=== PATIENT | male | born 1940 | race Caucasian/White ===

== ENCOUNTER 2020-07-06 09:23 | Day surgery (SDC) | payer MEDICARE ==
[~2020-07-06] VITALS: Ht 172.7 cm; Wt 97.9 kg
--- NOTE | 2020-07-06 09:49 | NUR ---
07/06/20 0949 Lucy Hess CHARTED BY [facility]
[2020-07-06] MEDS ORDERED: ELIQUIS5 M3 PO (09:53)
[2020-07-06] MEDS ORDERED: METO50ER PO (09:54)
[2020-07-06] MEDS ORDERED: TORSE20 PO (09:54)
[2020-07-06] MEDS ORDERED: AMLODIPINE BESY10 MG PO (09:54)
[2020-07-06] MEDS ORDERED: ROSUVASTATIN CA10 MG PO (09:54)
[2020-07-06] MEDS ORDERED: TAMSULOSIN HCL0.4 M1 PO (09:55)
--- NOTE | 2020-07-06 11:46 | NUR ---
07/06/20 1146 Gisel Jiménez LIDOCAINE 1% AND LIDOCAINE 4% NOT USED FOR THIS PROCEDURE. TETRACAINE USED IN ITS PLACE PER PHYSICIAN REQUEST
== END 2020-07-06 12:21 | disposition home or self-care (01) ==
LOC: ORSCSDS 09:23
PROVIDERS: Ophthalmology
PROC: 08RJ3JZ Replacement of Right Lens with Synthetic Substitute, Percutaneous Approach (ICD-10-PCS; principal; 2020-07-06 10:30)
DX: H25.11 Age-related nuclear cataract, right eye (principal); H21.81 Floppy iris syndrome; I48.91 Unspecified atrial fibrillation; Z79.01 Long term (current) use of anticoagulants; G47.33 Obstructive sleep apnea (adult) (pediatric); Z79.899 Other long term (current) drug therapy
CPT/HCPCS: 82947; A9270; J2001; J2250; J3010; J3301; J7040; V2632

== ENCOUNTER 2020-12-21 01:18 | Inpatient (IN) | payer MEDICARE ==
[~2020-12-21] VITALS: Ht 170.2 cm; Wt 80.2 kg
[~2020-12-21 01:18] MED LIST: AMLODIPINE BESY10 MG PO; ELIQUIS5 M3 PO; METO25ER PO; ROSUVASTATIN CA10 MG PO; TAMSULOSIN HCL0.4 M1 PO; TORSE20 PO
[2020-12-21 01:58] LABS: Source, Urine Catheter
[2020-12-21 02:01] LABS: Bilirubin, Urine Neg (Neg); Blood, Urine 2+ (Neg); Glucose Qualitative, Urine Neg (Neg); Ketones, Urine Neg (Neg); Leukocyte Esterase, Urine Neg (Neg); Nitrite, Urine Neg (Neg); Protein, Urine 3+ (Neg); Urobilinogen, Urine NORM (Normal)
[2020-12-21 02:07] LABS: Appearance, Urine Clear (Clear); Color, Urine Yellow (P-Yellow)
[2020-12-21 02:08] LABS: Bacteria Not Seen /hpf; Red Blood Cells, Urine Rare /hpf (0-2); Squamous Epithelial Cells Not Seen /hpf (Few); White Blood Cells, Urine 0-2 /hpf (0-5)
[2020-12-21] MEDS ORDERED: SPIRONOLACTONE25 MG PO (02:12)
[2020-12-21] MEDS ORDERED: EUTHYROX25 MC1 PO (02:12)
[2020-12-21 03:06] LABS: BASOPHILS ABSOLUTE AUTO 0.03 K/mm3 (0.00-0.23); BASOPHILS PERCENT AUTO 0 % (0-2); EOSINOPHILS ABSOLUTE AUTO 0.01 K/mm3 (0.00-0.68); EOSINOPHILS PERCENT AUTO 0 % (0-6); Hematocrit 41.6 % (37.0-53.0); Hemoglobin 12.8 g/dL (13.5-17.5); IMMATURE GRAN ABSOLUTE AUTO 0.06 K/mm3 (0.00-0.10); IMMATURE GRAN PERCENT AUTO 1 % (0-1); LYMPHOCYTES ABSOLUTE AUTO 0.63 K/mm3 (0.84-5.20); LYMPHOCYTES PERCENT AUTO 5 % (21-46); MONOCYTES ABSOLUTE AUTO 1.27 K/mm3 (0.16-1.47); MONOCYTES PERCENT AUTO 10 % (4-13); Mean Corpuscular HGB 24.2 pg (26.0-34.0); Mean Corpuscular HGB Conc 30.8 g/dL (31.5-36.5); Mean Corpuscular Volume 79 fL (80-100); NEUTROPHILS ABSOLUTE AUTO 10.24 K/mm3 (1.96-9.15); NEUTROPHILS PERCENT AUTO 84 % (41-73); Platelet Count 247 K/mm3 (150-400); RDW Coefficient Variation 17.4 % (11.7-14.2); RDW Standard Deviation 50.1 fL (35.1-46.3); Red Blood Cell Count 5.28 M/mm3 (4.30-5.90); White Blood Cell Count 12.24 K/mm3 (4.00-11.30)
[2020-12-21 03:16] LABS: Alanine Aminotransfer (ALT/SGP 11 U/L (12-78); Albumin, Blood 2.5 g/dL (3.4-5.0); Albumin/Globulin Ratio 0.6 (0.8-1.8); Alk Phos 123 U/L (50-136); Anion Gap 4 mmol/L (6-16); Aspartate Aminotrans (AST/SGOT 15 U/L (12-37); Bilirubin, Total 1.2 mg/dL (0.1-1.0); Blood Urea Nitrogen 11 mg/dL (8-24); Bun/Creatinine Ratio 13.3 (12.0-20.0); CO2, Blood 32 mmol/L (21-32); Chloride, Blood 100 mmol/L (98-108); Creatinine, Blood 0.83 mg/dL (0.60-1.20); Glomerular Filtration Rate >60 (60-); Glucose, Blood 174 mg/dL (70-99); Potassium, Blood 3.3 mmol/L (3.5-5.5); Sodium, Blood 136 mmol/L (136-145); Total Protein, Blood 6.5 g/dL (6.4-8.2); Troponin I 0.062 ng/mL (0.000-0.040)
[2020-12-21 06:42] LABS: SARS-Cov-2 (COVID-19) PCR, MMC NEGATIVE (NEGATIVE)
--- NOTE | 2020-12-21 07:16 | NUR ---
ARRIVED FROM ED/SHIFT SUMMARY PATIENT ARRIVED FROM ED @ 0513; AWAKE AND ALERT. ON ROOM AIR W/ SPO2 99%. IV ACCESS OF 22G TO LT AC; POWER GLIDE PLACED TO PRADIP UPON ARRIVAL TO ICU. PATIENT IS A POOR HISTORIAN W/ PERIODS OF CONFUSION, BUT REMAINS ORIENTED X 4. PLAN IS FOR ECHO TO BE COMPLETED THIS MORNING W/ CARDIOLOGY TO FOLLOW CASE. REPORT GIVEN TO MAIA LORA
--- NOTE | 2020-12-21 07:45 | NUR ---
APOORVA AT BEDSIDE, HS NURSE REPORTS [facility] IN [place]. Danita SANCHEZ RN/CN TO BEDSIDE WEI COUNTED $385.00 VERIFIED W/PT. REPORTS FAMILY WILL COME AT VISITATION TIME AND TAKE HOME WITH THEM. [place] PLACED IN ZIPLOC BAG AND PLACED IN ROBE POCKET ON SHELF IN ROOM.
--- NOTE | 2020-12-21 08:00 | NUR ---
POWER GLIDE MIDLINE IV NOTED TO RIGHT UPPER ARM INFUSING WITH NO DIFFICULTY, DRESSING CLEAN DRY INTACT. NO REDNESS/ SWELLING NOTED.
--- NOTE | 2020-12-21 09:37 | NUR ---
DR LYLES AT BEDSIDE.
--- NOTE | 2020-12-21 10:45 | NUR ---
DR VAIL AT BEDSIDE, DISCUSSED BP. NO ORDERS AT THIS TIME.
[2020-12-21 12:22] LABS: Thyroid Stimulating Hormone 2.38 uIU/mL (0.360-4.800)
[2020-12-21 12:23] LABS: CHOL/HDL RATIO 3.2; Cholesterol 142 mg/dL (50-200); HDL Cholesterol 44 mg/dL (>39); LDL/HDL RATIO 1.9; Low Density Lipoprotein Chol 84 mg/dL (0-110); Triglycerides 71 mg/dL (30-160); Very Low Density Lipoprot Chol 14 mg/dL (6-32)
--- NOTE | 2020-12-21 12:23 | NUR ---
Echocardiogram completed
--- NOTE | 2020-12-21 15:22 | NUR ---
FAMILY AT BEDSIDE, MEDICATION LIST OF CURRENT MEDS PROVIDED. OLD AND NEW MEDICATION BOTTLES PROVIDED BY FAMILY. FAMILY AT BEDSIDE. OCCUPATIONAL HEALTH AT BEDSIDE.
--- NOTE | 2020-12-21 18:20 | NUR ---
PEERLA @ 3 AWAKE ALERT ORIENTED X 3 HAS DIFFICULTY WITH DATE/ TIME. REMAINS IN AFIB RATE VARIES FROM 80-110'S. AMIODARONE INFUSING ORDERED. PLAN FOR HEART CATH IN AM WITH DR LYLES. RESPIRATIONS EVEN UNLABORED ON ROOM AIR DOES BECOME SOB WHEN LYING FLAT, EXERTING SELF.BS X 4 QUADRANTS. INCONTINENT OF BLADDER, WEARS BRIEF, REQUEST FOR CHANGE NEEDED.
--- NOTE | 2020-12-21 19:00 | NUR ---
PATIENT REPORT RECEIVED FROM MONA LORA RN PATIENT APPEAR ON CALM AAOX3, PERSON, SITUATION, PLACE A FIB NOTED IN THE MONITOR (AMIO DRIP 0.5) NC 2 L WILL TO CONTINUE TO MONITOR
[2020-12-22 03:28] LABS: Hematocrit 36.8 % (37.0-53.0); Hemoglobin 11.3 g/dL (13.5-17.5); Mean Corpuscular HGB 24.6 pg (26.0-34.0); Mean Corpuscular HGB Conc 30.7 g/dL (31.5-36.5); Mean Corpuscular Volume 80 fL (80-100); Mean Platelet Volume 9.2 fL (9.1-12.4); Platelet Count 243 K/mm3 (150-400); RDW Coefficient Variation 17.4 % (11.7-14.2); Red Blood Cell Count 4.59 M/mm3 (4.30-5.90); White Blood Cell Count 11.12 K/mm3 (4.00-11.30)
[2020-12-22 03:49] LABS: Alanine Aminotransfer (ALT/SGP 8 U/L (12-78); Albumin, Blood 2.1 g/dL (3.4-5.0); Albumin/Globulin Ratio 0.6 (0.8-1.8); Alk Phos 110 U/L (50-136); Anion Gap 5 mmol/L (6-16); Aspartate Aminotrans (AST/SGOT 14 U/L (12-37); Blood Urea Nitrogen 13 mg/dL (8-24); Bun/Creatinine Ratio 14.6 (12.0-20.0); CO2, Blood 30 mmol/L (21-32); Calcium, Blood 8.5 mg/dL (8.5-10.1); Chloride, Blood 100 mmol/L (98-108); Creatinine, Blood 0.89 mg/dL (0.60-1.20); Globulin, Blood 3.8 g/dL (2.2-4.0); Glomerular Filtration Rate >60 (60-); Glucose, Blood 134 mg/dL (70-99); Potassium, Blood 3.3 mmol/L (3.5-5.5); Sodium, Blood 135 mmol/L (136-145); Total Protein, Blood 5.9 g/dL (6.4-8.2); Troponin I 0.027 ng/mL (0.000-0.040)
--- NOTE | 2020-12-22 07:48 | NUR ---
transported via bed to cardiac skilled laborer, accompanied by rn X2. respirations even unlabored on room air.
--- NOTE | 2020-12-22 10:00 | NUR ---
transported via bed to room from mobile lab technician accompanied mobile lab technician rn's x 2. right groin site secured with perclose device, small area with blood noted. distal pulse present, diminshed unchanged from pevious assessment. respirations even unlabored audible wheezing noted denies sob, o2 sat 100% on room air. 10:10 Son Erasmo called update to status will come to hosp during visiting hours.
--- NOTE | 2020-12-22 10:15 | NUR ---
RIGHT GROIN SITE REMAINS SOFT NO MASSES NOTED SCANT BLEEDING NOTED UNDER DRESSING NO BRUIT NOTED. RIGHT PEDAL PULSE DIMINISHED UNCHANGED FROM PREVIUS ASSESSMENT.
--- NOTE | 2020-12-22 10:30 | NUR ---
RIGHT GROIN SITE REMAINS SOFT NO MASSES NOTED NO BRUIT NOTED DRAINAGE SAME PREVIOUS ASSESSMENT. R PEDAL PULSE REMAISN DIMINISHED NO CHANGES
--- NOTE | 2020-12-22 10:45 | NUR ---
RIGHT GROINSITE REMAINS UNCHANGED FROM PREVIOUS ASSESSMENT. AUDIBLE WHEEZING NOTED. O2 SAT 99 % ON ROOM AIR DENIES SOB.
--- NOTE | 2020-12-22 11:00 | NUR ---
DR LYLES TO BEDSIDE, PALPATED R GROIN, BLOOD SEEPAGE NOTED FROM DRESSING dR LYLES APPLIED MANUAL PRESSURE REQUEST TO PLACE SAND BAG. 5 LB AND 2 LB SAND BAGS APPLIED. NO ADDITIONAL DRAINAGE NOTED. DISCUSSED RESPIRATORY STATUS, VERBAL ORDERS RECEIVED. DR MARTINO PLACE ORDERS ON CHART.
--- NOTE | 2020-12-22 11:15 | NUR ---
R GROIN SITE REMIANS W SAND BAGS IN PLACE NO NEW DRAINAGE NOTED. NO MASSES NO BRUIT, SOFT TO PALPATION. TACHYPNEA NOTED, 02 SAT 99%, RN REMAINS AT BEDSIDE.
--- NOTE | 2020-12-22 12:00 | NUR ---
SAND BAGS REMAIN INPLACE TO R GROIN, NO ADDITIONAL BLEEDING NOTED. TACHYPNEA NOTED AUDIBLE WHEEZING NOTED, LASIX ADMINISTERED ORDERED. RN REMAINS AT BEDSIDE
--- NOTE | 2020-12-22 13:00 | NUR ---
SMALL CONDOM CATHETER APPLIED, BRIEF REMAINS INTACT. RIGHT GROI9N SITE REMAINS UNCHANGED, SAND BAGS REMAININ PLACE. HOB UP apprx 30 degrees, APPEARS TIRED. RESPIRATORY PATTERN BETTER WITH NO INCREASED WORK OF BREATHING. STATES "CAN BREATH BETTER".
--- NOTE | 2020-12-22 14:39 | NUR ---
RESTING IN BED EYES CLOSED, AROUSES TO VERBAL STIMULI. RIGHT GROIN SITE REMAINS UNCHANGED, BLOOD UNDER DRESSING REMAINS UNCHANGED SOFT TO PALPATION, NO MASSESS/ BRUIT NOTED. SAND BAG REMAINS IN PLACE. RESPIRATIONS EVEN, NO USE OF ACCESSORY MUSCLES NOTED. CONDOM CATHETER REMAISN INTACT DRAINING DILUTE YELLOW URINE. HOB ELEVATED APPRX 45 DEGREES.
--- NOTE | 2020-12-22 15:03 | NUR ---
REPORT OFF TO RAYMON CARVALHO. PENDING TRANSPORT.
--- NOTE | 2020-12-22 15:52 | NUR ---
FAMILY AT BEDSIDE UPDATED ON POC/ STATUS, LOBO ( SON) REPORTS THEY HAVE SPOKEN TO DR LYLES AND HAVE NO FURTHER QUESTIONS AT THIS TIME. NOTIFIED MARTHA RN/ SALES AND SERVICE OFFICERCOOK HELPER PASTRY IS AT BEDSIDE.
--- NOTE | 2020-12-22 15:55 | NUR ---
DR LYLES CALLED [facility] ORDERS, REQUEST RN PLACE ORDERS ON CHART.
--- NOTE | 2020-12-22 17:00 | NUR ---
RESTING IN BED RIGHT GROIN DRESSING INTACT WITH OLD BLOOD, DRESSING CHANGED TO ENSURE NO BLEEDING PRIOR TO LOVENOX ADMINISTRATION. DRIED BLOOD AT SITE LEFT INTACT SURROUNDING AREA CLEANED WITH STERILE WATER. COVERED W/ CHLORHEXIDINE IMPREGNATED TEGADERM. NO NEW BLEEDING NOTED. SANDBAG OFF. INCREASED WORK OF BREATHING NOTED, MEDICATED ORDERED. ENCOURAGED TO REPORT WORSENING SOB, ANY OTHER COMPLAINTS/ CONCERNS VERBALIZED UNDERSTANDING DENIES FURTHER NEEDS AT THIS TIME. APPEARS TIRED.
--- NOTE | 2020-12-22 17:28 | NUR ---
PEERLA @ 3, ORIENTED X 3. REMAINS IN AFIB RATE FROM 54-110'S NOTED THIS DATE, CARDIAC CATH COMPLETED THIS DATE VIA RIGHT GROIN SITE SECURED WITH PERCLOSE DEVICE, SITE HAS OOZED, SAND BAGS APPLIED. DRESSING WAS CHANGED IN ORDER TO MONITOR FOR FURTHER BLEEDING PRIOR TO LOVENOX ADMINISTRATION. PLAN TO RETURN TO BACK PADDER TOMORROW. BREATH SOUNDS DIMINISHED ALL JUNIOR, AUDIBLE WHEEZING NOTED POST HEART CATH WITH INCREASED WORK OF BREATHING HAS BEEN DIURESED CHARTED, 1750 ML URINE OUTPUT. REMAINS ON ROOM AIR. CONDOM CATHETER WAS PLACED TO ASSIST WITH ABILITY TO REST/CONSERVE ENERGY. DISCUSSED IMPORTANCE OF ENERGY CONSERVATION WITH FAMILY AND CURRENT STATUS REMAINS CRITICAL. FAMILY VERBALIZES UNDERSTANDING AND REMAIN AVAILABLE BY PHONE.
[2020-12-22 19:10] LABS: ANA DIRECT Negative (Negative); ANTI-DNA (DS) AB QN 1 IU/mL (0-9); RNP ANTIBODIES <0.2 AI (0.0-0.9); SJOGREN'S ANTI-SS-A <0.2 AI (0.0-0.9); SJOGREN'S ANTI-SS-B <0.2 AI (0.0-0.9); SMITH ANTIBODIES <0.2 AI (0.0-0.9)
[2020-12-22 19:10] LABS: Hematocrit 38.1 % (37.0-53.0); Hemoglobin 11.7 g/dL (13.5-17.5)
--- NOTE | 2020-12-22 20:01 | NUR ---
RCVD REPORT FROM AM RN. PT RESTING COMFORTABLY IN BED. ROUSES EASILY TO VERBAL STIMULI. MONITORING AFIB 50-60, BP STABLE. R GROIN SITE IS C/D/I, NO BLEEDING OR HEMATOMA PRESENT. SISSY DP PULSES, THREADY BUT PALPABLE, SISSY LE WARM TO TOUCH. INCREASED WOB NOTED WHEN TALKING, FINE CRACKLES AUDIBLE IN SISSY LOWER LOBES. SPO2 98%. LIPS AND NOSE COLON IN COLOR. PT IS ORIENTED TO PERSON, PLACE AND SITUATION. DENIES ANY PAIN OR NEEDS AT THIS TIME. ASSESSMENT TO FOLLOW IN [facility].
--- NOTE | 2020-12-23 | NUR ---
PT NPO @ 0000 FOR PROCEDURE TODAY
--- NOTE | 2020-12-23 02:42 | NUR ---
PT ATTEMPTING TO CLIMB OOB, ATTEMPTING TO REMOVE BLOOD PRESSURE CUFF AND EKG LEADS. PT ANXIOUS. DR. LIZ GARDNER, NEW ORDERS RCVD.
[2020-12-23 03:45] LABS: BASOPHILS ABSOLUTE AUTO 0.02 K/mm3 (0.00-0.23); BASOPHILS PERCENT AUTO 0 % (0-2); EOSINOPHILS ABSOLUTE AUTO 0.02 K/mm3 (0.00-0.68); EOSINOPHILS PERCENT AUTO 0 % (0-6); Hematocrit 37.1 % (37.0-53.0); Hemoglobin 11.4 g/dL (13.5-17.5); IMMATURE GRAN ABSOLUTE AUTO 0.06 K/mm3 (0.00-0.10); IMMATURE GRAN PERCENT AUTO 1 % (0-1); LYMPHOCYTES ABSOLUTE AUTO 0.38 K/mm3 (0.84-5.20); LYMPHOCYTES PERCENT AUTO 4 % (21-46); MONOCYTES ABSOLUTE AUTO 1.01 K/mm3 (0.16-1.47); MONOCYTES PERCENT AUTO 10 % (4-13); Mean Corpuscular HGB 24.4 pg (26.0-34.0); Mean Corpuscular HGB Conc 30.7 g/dL (31.5-36.5); Mean Corpuscular Volume 79 fL (80-100); Mean Platelet Volume 9.4 fL (9.1-12.4); NEUTROPHILS ABSOLUTE AUTO 9.01 K/mm3 (1.96-9.15); NEUTROPHILS PERCENT AUTO 86 % (41-73); Platelet Count 240 K/mm3 (150-400); RDW Coefficient Variation 17.9 % (11.7-14.2); RDW Standard Deviation 51.8 fL (35.1-46.3); Red Blood Cell Count 4.67 M/mm3 (4.30-5.90)
[2020-12-23 04:01] LABS: Anion Gap 5 mmol/L (6-16); Blood Urea Nitrogen 14 mg/dL (8-24); Bun/Creatinine Ratio 15.3 (12.0-20.0); CO2, Blood 28 mmol/L (21-32); Calcium, Blood 8.4 mg/dL (8.5-10.1); Chloride, Blood 104 mmol/L (98-108); Creatinine, Blood 0.92 mg/dL (0.60-1.20); Glomerular Filtration Rate >60 (60-); Glucose, Blood 129 mg/dL (70-99); Phosphorus, Blood 2.8 mg/dL (2.5-4.9); Potassium, Blood 3.9 mmol/L (3.5-5.5); Sodium, Blood 137 mmol/L (136-145)
--- NOTE | 2020-12-23 06:45 | NUR ---
PT REPOSITIONED. R GROIN SITE REMAINS C/D/I, NO BLEEDING OR HEMATOMA PRESENT. SISSY DP PULSES THREADY BUT PALPABLE. PT DROWSY, ROUSES TO VERBAL STIMULI, BUT FALLS BACK ASLEEP. PT REPOSITIONED FOR COMFORT.
--- NOTE | 2020-12-23 09:30 | NUR ---
CALLED DR LYLES, CLARIFIED IVF ORDER, WHAT TIME THE PATIENT WILL BE GOING TO THE INLETTER, IF A BALLON IS GOING TO BE PLACED, AND PATIENTS POOR SWALLOW THIS AM. WILL START IVF AND WAKE PATIENT ENOUGH TO TAKE MEDICATIONS
--- NOTE | 2020-12-23 09:53 | NUR ---
PATIENT TO SHELTERED WORKSHOP EXECUTIVE DIRECTOR NOW
[2020-12-23 13:50] LABS: Source, Urine Catheter
[2020-12-23 13:54] LABS: Appearance, Urine Clear (Clear); Bilirubin, Urine Neg (Neg); Blood, Urine Neg (Neg); Color, Urine Yellow (P-Yellow); Glucose Qualitative, Urine Neg (Neg); Ketones, Urine Neg (Neg); Leukocyte Esterase, Urine Neg (Neg); Nitrite, Urine Neg (Neg); Protein, Urine Neg (Neg); Urobilinogen, Urine NORM (Normal)
--- NOTE | 2020-12-23 13:58 | NUR ---
1244 PATIENT BACK TO FLOOR FROM DIGITAL ADVISOR, TO LAY FLAT FOR 6 HOURS, RIGHT GROIN SITE CHECKED, SMALL HEMATOMA TO RIGHT GROIN, DOPPLER PEDAL AND TIBIAL PULSES, CAP REFIL GREATER THAN 3, EKG DONE, DR LYLES ROUNDED, PATIENT TO STAY ICU STATUS FOR NOW, TACHYPNEA, LABORED, SATS 90-98%, CENTRAL CYANOSIS PATIENTS BASELINE, WCTM
--- NOTE | 2020-12-23 16:29 | NUR ---
DR. LYLES CAME TO CHECK ON PATIENT. DOCTOR INFORMED THAT SBP IN THE 170S AND THAT PRN ORDERS OBTAINED FROM ISTRATE. DR. LYLES STATED TO GIVE AM DOSES OF COZAAR, METOPROLOL AND NORVASC NOW, IF PATIENT AWAKE ENOUGH TO TAKE. DR. LYLES AWARE THAT PATIENT HAS [address] LYLES STATED TO GIVE PRN HTN MEDS FOR SBP GREATER THAN 200.
--- NOTE | 2020-12-23 18:34 | NUR ---
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
--- NOTE | 2020-12-23 19:30 | NUR ---
RCVD REPORT FROM AM RN. PT RESTING COMFORTABLY WITH EYES CLOSED. ROUSES EASILY TO VERBAL STIMULI, MUMBLES INCOHERENTLY WHEN AWAKE. R GROIN SITE IS C/D/I, OLD BLOOD AT SITE, NO ACTIVE BLEEDING OR HEMATOMA PRESENT; DRESSED WITH TEGADERM/CHG. SISSY DP PULSES WEAK W DOPPLER. SEE [facility] FOR DETAILED ASSESSMENT.
[2020-12-24 03:53] LABS: BASOPHILS ABSOLUTE AUTO 0.03 K/mm3 (0.00-0.23); BASOPHILS PERCENT AUTO 0 % (0-2); EOSINOPHILS ABSOLUTE AUTO 0.16 K/mm3 (0.00-0.68); EOSINOPHILS PERCENT AUTO 1 % (0-6); Hematocrit 38.6 % (37.0-53.0); Hemoglobin 11.8 g/dL (13.5-17.5); IMMATURE GRAN ABSOLUTE AUTO 0.08 K/mm3 (0.00-0.10); IMMATURE GRAN PERCENT AUTO 1 % (0-1); LYMPHOCYTES ABSOLUTE AUTO 0.55 K/mm3 (0.84-5.20); LYMPHOCYTES PERCENT AUTO 4 % (21-46); MONOCYTES ABSOLUTE AUTO 1.29 K/mm3 (0.16-1.47); MONOCYTES PERCENT AUTO 10 % (4-13); Mean Corpuscular HGB 24.3 pg (26.0-34.0); Mean Corpuscular HGB Conc 30.6 g/dL (31.5-36.5); Mean Corpuscular Volume 79 fL (80-100); Mean Platelet Volume 9.8 fL (9.1-12.4); NEUTROPHILS ABSOLUTE AUTO 10.89 K/mm3 (1.96-9.15); NEUTROPHILS PERCENT AUTO 84 % (41-73); Platelet Count 285 K/mm3 (150-400); RDW Coefficient Variation 17.7 % (11.7-14.2); RDW Standard Deviation 51.6 fL (35.1-46.3); Red Blood Cell Count 4.86 M/mm3 (4.30-5.90)
[2020-12-24 04:19] LABS: Alanine Aminotransfer (ALT/SGP 14 U/L (12-78); Albumin, Blood 2.1 g/dL (3.4-5.0); Albumin/Globulin Ratio 0.5 (0.8-1.8); Alk Phos 118 U/L (50-136); Anion Gap 7 mmol/L (6-16); Bilirubin, Total 1.1 mg/dL (0.1-1.0); Blood Urea Nitrogen 14 mg/dL (8-24); Bun/Creatinine Ratio 16.8 (12.0-20.0); CO2, Blood 28 mmol/L (21-32); Calcium, Blood 8.5 mg/dL (8.5-10.1); Chloride, Blood 103 mmol/L (98-108); Creatinine, Blood 0.83 mg/dL (0.60-1.20); Globulin, Blood 4.1 g/dL (2.2-4.0); Glomerular Filtration Rate >60 (60-); Glucose, Blood 118 mg/dL (70-99); Magnesium, Blood 2.3 mg/dL (1.6-2.4); Phosphorus, Blood 3.2 mg/dL (2.5-4.9); Potassium, Blood 3.6 mmol/L (3.5-5.5); Sodium, Blood 138 mmol/L (136-145); Total Protein, Blood 6.2 g/dL (6.4-8.2)
[2020-12-24 04:24] LABS: Aspartate Aminotrans (AST/SGOT 44 U/L (12-37)
--- NOTE | 2020-12-24 09:08 | NUR ---
ASSUMED CARE NOTE: ASSUMED CARE OF PT AT 0700. PT IS DROWSY, AWAKENS TO VERBAL STIMULI. C/O OF WEAKNESS T/O. DENIES ANY PAIN AT THIS TIME. PT IS ON 2L OF O2 VIA NC, WITH SpO2 ABOVE 90% RR IN THE HIGH 20'S, MILD ACCESSORY MUSCULE USE NOTED. BILAT UPPER LOBES CLEAR/DIM, BILAT LOWER LOBES SLIGHTLY COARSE. HOB GREATER THAN 30 DEGREES. CALLED, REVEIWED CHART, PLACED ORDERS FOR STAT CTA, AND LABS. PT TAKEN TO CT AT 0815, BACK IN ROOM AT 0830, NO ISSUES WITH TRANSPORT. PT IS IN AFIB WITH HR IN THE 70-80'S, SBP 150'S. ACTIVE BOWEL TONES, POOR APPETITE. SIMON PATENT, DRAINING TO GRAVITY. WILL CONTINUE TO MONITOR PT T/O SHIFT.
[2020-12-24 12:23] LABS: BASOPHILS ABSOLUTE AUTO 0.02 K/mm3 (0.00-0.23); BASOPHILS PERCENT AUTO 0 % (0-2); EOSINOPHILS ABSOLUTE AUTO 0.14 K/mm3 (0.00-0.68); EOSINOPHILS PERCENT AUTO 1 % (0-6); Hematocrit 37.8 % (37.0-53.0); Hemoglobin 11.8 g/dL (13.5-17.5); IMMATURE GRAN ABSOLUTE AUTO 0.05 K/mm3 (0.00-0.10); IMMATURE GRAN PERCENT AUTO 1 % (0-1); LYMPHOCYTES ABSOLUTE AUTO 0.67 K/mm3 (0.84-5.20); LYMPHOCYTES PERCENT AUTO 6 % (21-46); MONOCYTES ABSOLUTE AUTO 0.99 K/mm3 (0.16-1.47); MONOCYTES PERCENT AUTO 9 % (4-13); Mean Corpuscular HGB 24.8 pg (26.0-34.0); Mean Corpuscular HGB Conc 31.2 g/dL (31.5-36.5); Mean Corpuscular Volume 80 fL (80-100); Mean Platelet Volume 9.4 fL (9.1-12.4); NEUTROPHILS ABSOLUTE AUTO 8.94 K/mm3 (1.96-9.15); NEUTROPHILS PERCENT AUTO 83 % (41-73); Platelet Count 278 K/mm3 (150-400); RDW Standard Deviation 51.4 fL (35.1-46.3); Red Blood Cell Count 4.75 M/mm3 (4.30-5.90); White Blood Cell Count 10.81 K/mm3 (4.00-11.30)
[2020-12-24 12:36] LABS: Anion Gap 7 mmol/L (6-16); Blood Urea Nitrogen 13 mg/dL (8-24); Bun/Creatinine Ratio 13.5 (12.0-20.0); CO2, Blood 28 mmol/L (21-32); Calcium, Blood 8.6 mg/dL (8.5-10.1); Chloride, Blood 101 mmol/L (98-108); Creatinine, Blood 0.96 mg/dL (0.60-1.20); Glomerular Filtration Rate >60 (60-); Glucose, Blood 109 mg/dL (70-99); Sodium, Blood 136 mmol/L (136-145)
--- NOTE | 2020-12-24 15:05 | NUR ---
Update/Transfered care note: PT SAT ON THE SIDE OF THE BED, SBP DROPPED 20 POINTS. PT LAYED BACK DOWN. PT ORDER IN PLACE. PT SAT UP 90 DEGREES IN BED, HE ATE 75% OF LUNCH. SIMON DISCONTINUED. R GRION SITE DRESSING CHANGE NO ACTIVE BLEEDING NOTED. BEDSIDE REPORT GIVEN TO CONOR PLASTIC CARD GRADER CARDROOM. PT TRANSFERED TO PCU 8.
--- NOTE | 2020-12-24 18:38 | NUR ---
Patient is alert and oriented x2. Max assist to the chair for dinner, ortho vitals were hypotensive with sitting up and further with standing. On room air, elevated respiration rate but no distress or complaints of shortness of breath. Denies pain. On obersation for the night and most likely to DC in the AM. BSSR to be given to shift production supervisor nurse.
[2020-12-25 03:58] LABS: BASOPHILS ABSOLUTE AUTO 0.02 K/mm3 (0.00-0.23); BASOPHILS PERCENT AUTO 0 % (0-2); EOSINOPHILS ABSOLUTE AUTO 0.18 K/mm3 (0.00-0.68); EOSINOPHILS PERCENT AUTO 2 % (0-6); Hematocrit 36.8 % (37.0-53.0); Hemoglobin 11.4 g/dL (13.5-17.5); IMMATURE GRAN ABSOLUTE AUTO 0.07 K/mm3 (0.00-0.10); IMMATURE GRAN PERCENT AUTO 1 % (0-1); LYMPHOCYTES ABSOLUTE AUTO 0.58 K/mm3 (0.84-5.20); LYMPHOCYTES PERCENT AUTO 5 % (21-46); MONOCYTES ABSOLUTE AUTO 1.19 K/mm3 (0.16-1.47); MONOCYTES PERCENT AUTO 10 % (4-13); Mean Corpuscular HGB 24.7 pg (26.0-34.0); Mean Corpuscular Volume 80 fL (80-100); Mean Platelet Volume 9.7 fL (9.1-12.4); NEUTROPHILS ABSOLUTE AUTO 9.53 K/mm3 (1.96-9.15); NEUTROPHILS PERCENT AUTO 82 % (41-73); Platelet Count 288 K/mm3 (150-400); RDW Coefficient Variation 17.9 % (11.7-14.2); RDW Standard Deviation 51.8 fL (35.1-46.3); Red Blood Cell Count 4.62 M/mm3 (4.30-5.90); White Blood Cell Count 11.57 K/mm3 (4.00-11.30)
--- NOTE | 2020-12-25 04:12 | NUR ---
SHIFT SUMMARY PATIENT IS ALERT AND ORIENTED X3-4. FROGETFULL AND CONFUSED AT TIMES ESPECIALLY AT NIGHT WHEN WAKING UP. A.FIB 60s-70s. 02 SATS >95% ON RA, BREATHING TACHYPNIEC AT TIMES BUT PATIENT DENIES SOB. ORTHOSTATIC BLOOD PRESSURES DONE. PATIENT ABLE TO STAND AT BEDSIDE WITH ASSISTANCE AND WALKER. REPSOITONS SELF IN BED, VERBAL QUES GIVEN TO PREVENT BED SORES. BED ALARM ON D/T FORGETFULLNESS AT TIMES. INCONTINENT OF BLADDER AT TIMES, BRIEF IN PLACE. CALL LIGHT IN REACH.
[2020-12-25 04:19] LABS: Alanine Aminotransfer (ALT/SGP 16 U/L (12-78); Albumin, Blood 2.1 g/dL (3.4-5.0); Albumin/Globulin Ratio 0.5 (0.8-1.8); Alk Phos 113 U/L (50-136); Anion Gap 6 mmol/L (6-16); Aspartate Aminotrans (AST/SGOT 54 U/L (12-37); Blood Urea Nitrogen 13 mg/dL (8-24); Bun/Creatinine Ratio 12.7 (12.0-20.0); CO2, Blood 27 mmol/L (21-32); Calcium, Blood 8.5 mg/dL (8.5-10.1); Chloride, Blood 105 mmol/L (98-108); Creatinine, Blood 1.02 mg/dL (0.60-1.20); Globulin, Blood 3.9 g/dL (2.2-4.0); Glomerular Filtration Rate >60 (60-); Glucose, Blood 134 mg/dL (70-99); Magnesium, Blood 2.2 mg/dL (1.6-2.4); Phosphorus, Blood 2.9 mg/dL (2.5-4.9); Potassium, Blood 4.3 mmol/L (3.5-5.5); Sodium, Blood 138 mmol/L (136-145)
--- NOTE | 2020-12-25 18:28 | NUR ---
SHIFT SUMMARY PT HAS HAD A FEW EPISODES OF CONFUSION THAT WERE EASILY REDIRECTABLE AND REORIENTABLE. PT HAS HAD DIFFICULTY WITH DISTANT RECALL MEMORY BUT IS A&O X4. PT HAS GOTTEN UP TO THE RESTROOM WITH GB, WALKER, AND X1 ASSIST ON MULTIPLE OCCASIONS AND TOLERATED FAIR. VSS, NO C/O CHEST PAIN OR SOB. NO ACUTE CHANGES NOTED.
--- NOTE | 2020-12-25 22:53 | NUR ---
PATIENT IS ALERT AND ORIENTATED BUT HAS DIFFICULTY WITH REMEMBERING HOW TO USE CALL LIGHT AND WHEN TO CALL THE NURSE PRIOR TO ATTEMPTING TO GET UP, THIS EVENING PATIENT GOT TO THE EDGE OF THE BED, BED ALARM DIDN'T GO OFF, I WAS WALKING BY AND ASSISTED PATIENT. PATIENT STATED HE WENT TO THE RESTROOM ALREADY BUT PATIENT HADN'T GONE. ASSISTED PATIENT BACK INTO BED FROM THE SITTING POSITION ON THE EDGE OF BED. BED ALARM IS ON AND EDUCATED PATIENT DYE BLENDER LIGHT WITH REINFORCING EDUCATION AFTER EACH ENCOUNTER. PATIENT IS WEAK AND HAD DIFFICULTY WITH GETTING TO THE TOP OF BED PRIOR TO LAYING DOWN, HE IS ABLE TO MAKE MICROSHIFTING IN BED INDEPENDENTLY, ORTHOSTATICS WERE DONE AND WAS NEGATIVE PLEASE REFER TO VITAL SIGNS. PATIENT REPORTED HE WASN'T DIZZY AND OR BLURRED VISION UP SITTING UP AND OR STANDING, VITALS SIGNS HAD NO SIGNIFICANT CHANGES. LUNGS ARE CLEAR, DIMINISHED, ABDOMEN SOFT NONTENDER WITH ACTIVE BOWEL TONES, NO EDEMA NOTED, SKIN IS FRAGILE, SCATTERED BRUISING, BLE HAS PINKISH OVER PIGMENTATION ON SKIN WITH DIFFUSE SCABS, WITH NO PAIN REPORTED. SACRUM IS RED AND MEPLIX IN PLACE, PATIENT IS CONTINENT AND INCONTINENT AT TIMES. WILL CONTINUE TO MONITOR PATIENT.
[2020-12-26 03:37] LABS: BASOPHILS ABSOLUTE AUTO 0.04 K/mm3 (0.00-0.23); BASOPHILS PERCENT AUTO 0 % (0-2); EOSINOPHILS ABSOLUTE AUTO 0.32 K/mm3 (0.00-0.68); EOSINOPHILS PERCENT AUTO 3 % (0-6); Hematocrit 35.8 % (37.0-53.0); Hemoglobin 10.9 g/dL (13.5-17.5); IMMATURE GRAN ABSOLUTE AUTO 0.07 K/mm3 (0.00-0.10); IMMATURE GRAN PERCENT AUTO 1 % (0-1); LYMPHOCYTES ABSOLUTE AUTO 0.84 K/mm3 (0.84-5.20); LYMPHOCYTES PERCENT AUTO 8 % (21-46); MONOCYTES ABSOLUTE AUTO 0.99 K/mm3 (0.16-1.47); MONOCYTES PERCENT AUTO 9 % (4-13); Mean Corpuscular HGB 24.5 pg (26.0-34.0); Mean Corpuscular HGB Conc 30.4 g/dL (31.5-36.5); Mean Corpuscular Volume 81 fL (80-100); Mean Platelet Volume 9.6 fL (9.1-12.4); NEUTROPHILS ABSOLUTE AUTO 8.72 K/mm3 (1.96-9.15); NEUTROPHILS PERCENT AUTO 79 % (41-73); Platelet Count 274 K/mm3 (150-400); RDW Standard Deviation 53.1 fL (35.1-46.3); Red Blood Cell Count 4.44 M/mm3 (4.30-5.90); White Blood Cell Count 10.98 K/mm3 (4.00-11.30)
[2020-12-26 03:53] LABS: Anion Gap 5 mmol/L (6-16); Blood Urea Nitrogen 15 mg/dL (8-24); Bun/Creatinine Ratio 13.5 (12.0-20.0); CO2, Blood 27 mmol/L (21-32); Calcium, Blood 8.7 mg/dL (8.5-10.1); Chloride, Blood 107 mmol/L (98-108); Creatinine, Blood 1.11 mg/dL (0.60-1.20); Glomerular Filtration Rate >60 (60-); Glucose, Blood 129 mg/dL (70-99); Magnesium, Blood 2.2 mg/dL (1.6-2.4); Phosphorus, Blood 3.2 mg/dL (2.5-4.9); Potassium, Blood 4.5 mmol/L (3.5-5.5); Sodium, Blood 139 mmol/L (136-145)
[2020-12-26] MEDS ORDERED: ACET325 PO (12:47)
[2020-12-26] MEDS ORDERED: LOSA25 PO (12:48)
[2020-12-26] MEDS ORDERED: DULCOLAX400 MG/5 M PO (12:49)
[2020-12-26] MEDS ORDERED: POTA10T PO (12:59)
[2020-12-26] MEDS ORDERED: TICA90TA PO (13:00)
[2020-12-26] MEDS ORDERED: Vitamin B Comple1 EA PO (13:01)
--- NOTE | 2020-12-26 13:46 | NUR ---
PT WAS DISCHARGED VIA WHEELCHAIR TO PERSONAL VEHICLE. DISHCARGE INSTRUCTIONS GIVEN TO PT AND FAMILY MEMBER. ALL PERSONAL BELONGINGS IN PT POSSESSION AT DISCHARGE. DISCHARGE INSTRUCTIONS IN FAMILY MEMBER POSSESSION AT DISCHARGE. VSS. NO ACUTE CHANGES.
== END 2020-12-26 13:39 | disposition home health service (06) | DRG 247 ==
LOC: ER 01:18 → ICUW 04:16 → ICUE 04:16 → PCU 12-24 14:53
PROVIDERS: Emergency Medicine; Family Medicine; Internal Medicine; Internal Medicine Cardiovascular Disease; ADMIT Internal Medicine
PROC: 4A023N7 Measurement of Cardiac Sampling and Pressure, Left Heart, Percutaneous Approach (ICD-10-PCS; 2020-12-22)
PROC: B2111ZZ Fluoroscopy of Multiple Coronary Arteries using Low Osmolar Contrast (ICD-10-PCS; 2020-12-22)
PROC: 027035Z Dilation of Coronary Artery, One Artery with Two Drug-eluting Intraluminal Devices, Percutaneous Approach (ICD-10-PCS; principal; 2020-12-23)
PROC: 02C03Z7 Extirpation of Matter from Coronary Artery, One Artery, Orbital Atherectomy Technique, Percutaneous Approach (ICD-10-PCS; 2020-12-23)
PROC: B240ZZ3 Ultrasonography of Single Coronary Artery, Intravascular (ICD-10-PCS; 2020-12-23)
DX: I47.2 Ventricular tachycardia (principal); I42.9 Cardiomyopathy, unspecified; Z20.822 Contact with and (suspected) exposure to COVID-19; I48.11 Longstanding persistent atrial fibrillation; I25.10 Atherosclerotic heart disease of native coronary artery without angina pectoris; I16.0 Hypertensive urgency; R77.8 Other specified abnormalities of plasma proteins; F03.90 Unspecified dementia, unspecified severity, without behavioral disturbance, psychotic disturbance, mood disturbance, and anxiety; I95.1 Orthostatic hypotension; E87.6 Hypokalemia; R53.1 Weakness; I27.20 Pulmonary hypertension, unspecified; I50.812 Chronic right heart failure; I11.0 Hypertensive heart disease with heart failure; E11.9 Type 2 diabetes mellitus without complications; Z28.21 Immunization not carried out because of patient refusal; E78.5 Hyperlipidemia, unspecified; Z79.01 Long term (current) use of anticoagulants; Z79.899 Other long term (current) drug therapy; Z87.891 Personal history of nicotine dependence; Z90.89 Acquired absence of other organs; Z98.890 Other specified postprocedural states; W19.XXXA Unspecified fall, initial encounter
CPT/HCPCS: 36415; 70450; 70551; 71045; 71260; 76937; 80048; 80053; 80061; 81001; 81003; 82533; 82607; 82746; 83036; 83605; 83735; 84100; 84145; 84443; 84484; 85014; 85018; 85025; 85027; 85347; 85379; 85651; 86141; 86225; 86235; 86592; 92978; 93005; 93010; 93246; 93306; 93454; 93458; 93571; 96365; 96366; 96368; 96376; 97110; 97116; 97129; 97130; 97162; 97166; 97530; 97535; 99152; 99153; 99285-25; A9270; C1724; C1725; C1751; C1753; C1760; C1769; C1874; C1887; C1894; C9602; J0282; J1644; J1650; J1940; J2060; J2250; J3010; J3475; J3480; J7030; J7050; J7060; Q9967; U0004

== ENCOUNTER 2020-12-28 09:30 | Inpatient (IN) | payer MEDICARE ==
[~2020-12-28] VITALS: Ht 170.2 cm; Wt 79.2 kg
[~2020-12-28 09:30] MED LIST changes: +ACET325 PO; +DULCOLAX400 MG/5 M PO; +EUTHYROX25 MC1 PO; +LOSA25 PO; +POTA10T PO; +SPIRONOLACTONE25 MG PO; +TICA90TA PO; +Vitamin B Comple1 EA PO
[2020-12-28 09:50] LABS: Calcium, Ionized (POC) 1.15 mmol/L (1.10-1.46); Chloride (POC) 105 mmol/L (98-108); Creatinine (POC) 1.9 mg/dL (0.8-1.3); Glucose (ISTAT POC) 181 mg/dL (70-99); Hemoglobin (POC) 11.2 g/dL (13.5-17.5); Potassium (POC) 5.2 mmol/L (3.5-5.5); Sodium (POC) 137 mmol/L (135-148); Total CO2 (POC) 23 mmol/L (21-32)
[2020-12-28 10:03] LABS: BASOPHILS ABSOLUTE AUTO 0.07 K/mm3 (0.00-0.23); BASOPHILS PERCENT AUTO 1 % (0-2); EOSINOPHILS ABSOLUTE AUTO 0.17 K/mm3 (0.00-0.68); EOSINOPHILS PERCENT AUTO 1 % (0-6); Hematocrit 36.5 % (37.0-53.0); Hemoglobin 10.8 g/dL (13.5-17.5); IMMATURE GRAN ABSOLUTE AUTO 0.19 K/mm3 (0.00-0.10); IMMATURE GRAN PERCENT AUTO 1 % (0-1); LYMPHOCYTES ABSOLUTE AUTO 1.16 K/mm3 (0.84-5.20); LYMPHOCYTES PERCENT AUTO 8 % (21-46); MONOCYTES ABSOLUTE AUTO 1.36 K/mm3 (0.16-1.47); MONOCYTES PERCENT AUTO 10 % (4-13); Mean Corpuscular HGB 24.2 pg (26.0-34.0); Mean Corpuscular HGB Conc 29.6 g/dL (31.5-36.5); Mean Corpuscular Volume 82 fL (80-100); Mean Platelet Volume 10.1 fL (9.1-12.4); NEUTROPHILS ABSOLUTE AUTO 11.15 K/mm3 (1.96-9.15); NEUTROPHILS PERCENT AUTO 79 % (41-73); Platelet Count 358 K/mm3 (150-400); RDW Standard Deviation 53.9 fL (35.1-46.3); Red Blood Cell Count 4.46 M/mm3 (4.30-5.90)
[2020-12-28 10:31] LABS: Albumin, Blood 2.6 g/dL (3.4-5.0); Albumin/Globulin Ratio 0.6 (0.8-1.8); Bilirubin, Total 0.6 mg/dL (0.1-1.0); Bun/Creatinine Ratio 14.2 (12.0-20.0); Calcium, Blood 8.9 mg/dL (8.5-10.1); Creatinine, Blood 1.9 mg/dL (0.60-1.20); Globulin, Blood 4.1 g/dL (2.2-4.0); Potassium, Blood 5.3 mmol/L (3.5-5.5); Thyroid Stimulating Hormone 12.3 uIU/mL (0.360-4.800); Total Protein, Blood 6.7 g/dL (6.4-8.2)
[2020-12-28 10:43] LABS: International Normalized Ratio 1.08; Prothrombin Time Results 11.3 Sec (9.7-11.5)
[2020-12-28 10:45] LABS: Troponin I 3.78 ng/mL (0.000-0.040)
[2020-12-28 11:25] LABS: Free Thyroxine 1.31 ng/dL (0.70-1.60); Triiodothyronine, Free 1.58 pg/mL (2.18-3.98)
[2020-12-28 11:27] LABS: Influenza A, PCR NEGATIVE (NEGATIVE); Influenza B, PCR NEGATIVE (NEGATIVE); Resp Syncytial Virus, PCR NEGATIVE (NEGATIVE); SARS-Cov-2 (COVID-19) PCR, MMC NEGATIVE (NEGATIVE)
[2020-12-28] MEDS ORDERED: Potassium Chlo20 ME1 PO (11:47)
[2020-12-28 12:54] LABS: CPK Creatine Kinase 51 U/L (39-308)
[2020-12-28 12:55] LABS: Creatine Kinase MB <1.0 ng/mL (0.0-3.6); Creatine Kinase MB Index Unable to Calculate (0.0-4.0)
--- NOTE | 2020-12-28 14:00 | NUR ---
PT TRANSFERED FROM ED AT APPROX 1315 VIA GURNEY. PT A/OX4, HR APPEARS JUNCTIONAL WITHOUT PWAVES AT A RATE OF 35-40. PER ED REPORT ATROPINE WAS NOT EFFECTIVE AT ALL IN IMPROVING HR. PT APPEARS DROWSY, BUT ABLE TO ANSWER QUESTIONS AND FOLLOW COMMANDS. SYSTOLIC BP IN 70S UPON ARRIVAL. DOPAMINE INFUSION STARTED, INCREASED TO 10MCG/KG/MIN WITHIN FIRST HOUR TO ACHIEVE APPROPIATE MAP; HR NOW 45 AND GREATER. MD GRIGSBY CALLED AND INFORMED OF PT HR AND RATE OF DOPAMINE INFUSION, PLAN FOR PT TO GO TO HEALTHCARE CORPORATE ACCOUNT DIRECTOR [place] FOR PACER. EXTERNAL PACER PADS IN PLACE IN THE INTERIM. 02 SATS 95% AND GREATER ON RA, LUNGS CLEAR. BS POSITIVE, SMALL PASTY BM AND INCONTINENT VOID; HYGIENE PROVIDED. PLAN FOR PT TO HAVE PACEMAKER PLACED LATER TODAY.
--- NOTE | 2020-12-28 14:19 | NUR ---
SURFACE SUPERVISOR RN PRESENT. PT'S CARLY AND SON LOBO UPDATED ON PT STATUS AND POC. PT TAKEN VIA BED
--- NOTE | 2020-12-28 16:06 | NUR ---
PT BACK FROM DELIVERY AND MAIL SORTER AT 1600. INTRAVENOUS PACER IN PLACE RIGHT NECK ACCESS SITE. SETTINGS 60, 3, 3. PT V PACED RATE 60. DOPAMINE AT 10MCG/KG/MIN, BP STABLE. TITRATING DOWN. PT MUMBLING, AT TIMES DIFFICULT TO UNDERSTAND, BUT ABLE TO ANSWER ORIENTATION QUESTIONS CORRECTLY.
--- NOTE | 2020-12-28 16:32 | NUR ---
CALLED MD ANDERS TO DISCUSS PT RESTLESS, FIDGETING, PICKING AT MEDICAL EQUIPMENT DESPITE REDIRECTION AND REORIENTATION TO SURROUNDINGS. PT REMAINS ABLE TO ANSWER ORIENTATION QUESTIONS CORRECTLY, FACE SYMMETRICAL, PERRLA, APARICIO WITHOUT ISSUE AND FOLLOWS COMMANDS. RESTRAINTS ORDERED IF NEEDED TO PROTECT PT FROM ACCIDENTLY PULLING ON INTRAVENOUS PACER LINE. DIET UPGRADED IF PT PASSES BEDSIDE SWALLOW.
[2020-12-28 17:24] LABS: Creatine Kinase MB 1.4 ng/mL (0.0-3.6)
--- NOTE | 2020-12-28 17:45 | NUR ---
1715: DISCUSSED WITH MD GRIGSBY THAT PT MENTATION IS WORSENED FROM THIS AFTERNOON AEB RESTLESSNESS, ST MEMORY DEFICITS, INCREASED FORGETFULLNESS. PT REMAINS NEURO INTACT IN TERMS OF FACIAL SYMMETRY, NO PRONATOR DRIFT, EOM INTACT, APARICIO AND STRONG/PURPOSEFUL THROUGHOUT. MD GRIGSBY ADJUSTED SETTINGS OF PACER TO RATE OF 70, 3, 3. PT HAVING SMALL RUNS OF VTACH ON OCCASSION. NEW ORDERS OBTAINED. PT FAILED SWALLOW EVAL. RESTRAINTS PLACED TO BILATERAL WRISTS FOR PT SAFETY.
--- NOTE | 2020-12-28 18:40 | NUR ---
SHIFT SUMMARY PT ADMITTED TO ICU AT 1315, THEN TAKEN TO NATURAL RESOURCE TECHNICIAN FOR EMERGENT TEMP PACER PLACEMENT SECONDARY TO BRADYCARDIA IN 30S WITH NO P WAVES, DOPAMINE INFUSION NOT CORRECTING HR SUFFICIENTLY. HYPOTENSION PRESENT. PT BACK FROM NATURAL RESOURCE TECHNICIAN AT 1600; INITIAL PACER SETTINGS ADJUSTED AT 1745 TO INCREASE HR TO 70 WITH HOPES OF IMPROVING BP AND TITRATING OFF DOPAMINE. PT MENTATION WORSENS THROUGHOUT SHIFT. INCREASED FORGETFULNESS, RESTLESSNESS, ST MEMORY DEFICIT. RESTRAINTS PLACED FOR PT SAFETY SECONDARY TO RISK OF PULLING PACER AND IV LINES. MD NOTIFIED OF CHANGES, CT OF HEAD ORDERED. DOPAMINE DOWN TO 6MCG/KG/MIN AT END OF SHIFT. PT INCONTINENT OF BOWEL AND BLADDER X1. ATTEMPTED TO HAVE PT USE URINAL, BUT UNABLE TO DO SO. INCONTINENT BRIEF PLACED. PT REPOSITIONED Q 2 HRS. DENIES CP, SOB, NV, NUMBNESS/TINGLING OR DISCOMFORT THROUGHOUT SHIFT.
--- NOTE | 2020-12-28 20:00 | NUR ---
ASSUMPTION OF CARE PT ALERT AND ORIENTED WITH MOMENTS OF CONFUSION. PT RECEIVING DOPAMINE 6MCG/KG/MIN, TITRATED TO 4MCG/KG/MIN. TEMPORARY PACEMAKER PLACED EARLIER [facility] TO [facility]. NO SIGNS OF BLEEDING. SITE REINFORCED WITH TRANSPARENT DRESSING. PACEMAKER SET TO RATE OF 70, OUTPUT 3MV, AND SENSITIVITY 3. PT SHOWS VENTICULAR PACED ON MONITOR. PT DENIES PAIN OR DISCOMFORT. PT HAS MOMENTS OF "SEIZURE LIKE" ACTIVITY. PT DOES NOT LOSE CONSCIOUSNESS, AND IS ABLE TO SPEAK. PT C/O DIZZINESS AFTER THESE EPISODES. PT TO IMAGING FOR CT. SEE SHIFT SUMMARY.
[2020-12-28 21:02] LABS: Source, Urine Clean Catch
[2020-12-28 21:04] LABS: Blood, Urine Neg (Neg); Glucose Qualitative, Urine Neg (Neg); Ketones, Urine Neg (Neg); Leukocyte Esterase, Urine 1+ (Neg); Nitrite, Urine Neg (Neg); Protein, Urine 2+ (Neg); Urobilinogen, Urine 3+ (Normal)
[2020-12-28 21:06] LABS: Bilirubin, Urine 1+ (Neg)
[2020-12-28 21:12] LABS: Color, Urine Yellow (P-Yellow)
[2020-12-28 21:13] LABS: Bacteria Many /hpf; Red Blood Cells, Urine Rare /hpf (0-2); Squamous Epithelial Cells Few /hpf (Few)
[2020-12-28 21:15] LABS: Appearance, Urine Clear (Clear)
[2020-12-28 23:03] LABS: CPK Creatine Kinase 56 U/L (39-308)
[2020-12-28 23:05] LABS: Creatine Kinase MB <1.0 ng/mL (0.0-3.6); Creatine Kinase MB Index Unable to Calculate (0.0-4.0)
--- NOTE | 2020-12-29 01:46 | NUR ---
PT HAS BECOME MORE CONFUSED THROUGH THE NIGHT. PT SHOUTED OUT FOR HIS SON LOBO. REORIENTED PT. DURING CONVERSATION PT WILL ANSWER SOME QUESTIONS APPROPRIATELY BUT THEN MAKES UNRELATED STATEMENTS. WITH RESTRAINTS OFF, PT IMMEDIATELY REACHES FOR CORDS AND FIDGITS WITH ITEMS IN ARMS REACH. PT IS INCONTINENT OF URINE AND STOOL.
[2020-12-29 03:27] LABS: BASOPHILS ABSOLUTE AUTO 0.03 K/mm3 (0.00-0.23); BASOPHILS PERCENT AUTO 0 % (0-2); EOSINOPHILS ABSOLUTE AUTO 0.04 K/mm3 (0.00-0.68); EOSINOPHILS PERCENT AUTO 0 % (0-6); Hematocrit 32.5 % (37.0-53.0); Hemoglobin 9.8 g/dL (13.5-17.5); IMMATURE GRAN ABSOLUTE AUTO 0.08 K/mm3 (0.00-0.10); IMMATURE GRAN PERCENT AUTO 1 % (0-1); LYMPHOCYTES ABSOLUTE AUTO 0.57 K/mm3 (0.84-5.20); LYMPHOCYTES PERCENT AUTO 6 % (21-46); MONOCYTES ABSOLUTE AUTO 1.01 K/mm3 (0.16-1.47); MONOCYTES PERCENT AUTO 10 % (4-13); Mean Corpuscular HGB 24.4 pg (26.0-34.0); Mean Corpuscular HGB Conc 30.2 g/dL (31.5-36.5); Mean Corpuscular Volume 81 fL (80-100); Mean Platelet Volume 9.6 fL (9.1-12.4); NEUTROPHILS PERCENT AUTO 83 % (41-73); Platelet Count 285 K/mm3 (150-400); RDW Coefficient Variation 17.8 % (11.7-14.2); RDW Standard Deviation 52.6 fL (35.1-46.3); Red Blood Cell Count 4.02 M/mm3 (4.30-5.90); White Blood Cell Count 10.13 K/mm3 (4.00-11.30)
[2020-12-29 03:43] LABS: Albumin, Blood 2.3 g/dL (3.4-5.0); Albumin/Globulin Ratio 0.6 (0.8-1.8); Bilirubin, Total 0.6 mg/dL (0.1-1.0); Bun/Creatinine Ratio 14.8 (12.0-20.0); Calcium, Blood 8.8 mg/dL (8.5-10.1); Creatinine, Blood 1.76 mg/dL (0.60-1.20); Globulin, Blood 3.8 g/dL (2.2-4.0); Magnesium, Blood 2.2 mg/dL (1.6-2.4); Potassium, Blood 4.5 mmol/L (3.5-5.5); Total Protein, Blood 6.1 g/dL (6.4-8.2)
--- NOTE | 2020-12-29 05:15 | NUR ---
PT CONTINUES TO BECOME MORE CONFUSED. PT STS HE "NEEDS TO GET OUT OF BED. HE HAS TO MAKE PHONE CALLS AND GO TO THE DR". WHEN TOLD HE IS AT THE HOSPITAL HE MUMBLES. WHEN ASKED IF HE KNOWS WHERE HE IS, PT STS "OF COURSE I DO, I'M IN THE DOWNSTAIRS BEDROOM".
--- NOTE | 2020-12-29 05:58 | NUR ---
SHIFT SUMMARY TEMPORARY PACEMAKER IN GAJ REMAINS IN PLACE WITH RATE OF 70, 3MV, AND 3 SENSITIVITY. DRESSING HAS BEEN REINFORCED, NO SIGNS OF BLEEDING OR SWELLING. PT HAS BECOME MORE CONFUSED THROUGHOUT THE NIGHT. PT DENIES DIZZY SPELLS AND FEELING LIGHTHEADED. HE HAS NOT HAD MORE "SEIZURE LIKE" ACTIVITY. PT REMAINS FIDGETING AND MOVING SELF ALL OVER BED. BILAT SOFT WRIST RESTRAINTS REMAIN IN PLACE. PT HAD 3 INCONTINENT VOIDS AND 2 INCONTINENT BMS THIS SHIFT. DOPAMINE HAS BEEN OFF MOST OF NIGHT. PER DR GRIGSBY, DO NOT INFUSE INTO CENTRAL VENOUS ACCESS. WILL REPORT TO ONCOMING RN.
--- NOTE | 2020-12-29 08:22 | NUR ---
ASSUMED PT CARE THIS AM. PER NOC REPORT PT HAD PROFOUND CONFUSION AND RESTLESSNESS LAST NIGHT. DID NOT SLEEP. PT IS A/O TO SELF ONLY, STATES HE IS AT HOME, BUT OTHERTIMES IS ABLE TO IDENTIFY HE IS IN THE HOSPITAL WHEN GIVEN MULTIPLE CHOICE QUESTIONS TO ID WHERE HE IS. PT ABLE TO REMEMBER FAMILY NAMES. DOES NOT REMEMBER COMING TO HOSPITAL. PT PICKS AT MEDICAL EQUIPMENT AND DISROBES; PLACED IN WALI VEST AND SOFT RESTAINTS FOR SAFETY. DOPAMINE OFF SINCE LAST NOC. MD GRIGSBY IN TO SEE PT. PACER SETTINGS ADJUSTED TO 50; PT HAS INTRINSIC HEART BEAT. EKG STAT DONE. PLAN FOR PACER THIS AFTERNOON. CONSENT OBTAINED WITH PT'S SON.
--- NOTE | 2020-12-29 13:15 | NUR ---
PT TAKEN TO HOSPITAL CHIEF FINANCIAL OFFICER AT 1315 BY HOSPITAL CHIEF FINANCIAL OFFICER STAFF. FAMILY UPDATED.
--- NOTE | 2020-12-29 16:26 | NUR ---
PT IN BEDSPREAD CUTTER FROM [id number]. NOW BACK IN ROOM. PER BEDSPREAD CUTTER REPORT, PT RECIEVED GENERAL ANETHESIA, 150 FENT, DUAL CHAMBER PACER PLACED WITH RATE 60 BPM. NO PLANS FOR FURTHER PROCEDURES AT THIS TIME.
--- NOTE | 2020-12-29 17:40 | NUR ---
SHIFT SUMMARY PT A/O TO SELF THROUGHOUT SHIFT. INTERMITTENTLY ABLE TO ID THAT HE IS IN HOSPITAL. RESTRAINTS NEEDED SECONDARY TO PULLING AT MEDICAL EQUIPMENT. FACE SYMMETRIC, APARICIO, FOLLOWS SIMPLE COMMANDS. PT TAKEN TO ESL TUTOR [phone]. PERMANENT DUAL CHAMBER PACER PLACED, RATE 60, DRSG TO L CHEST WALL CDI. BP STABLE. V PACED AT TIMES, INTRINISIC RHYTHM PRESENT. EKG THIS AM. TROPS ELEVATED BUT DOWNTRENDING. LUNGS CLEAR RA. INCONTINENT OF BOWEL AND BLADDER. DENIES CP, SOB, NV, NUMBNESS TINGLING.
--- NOTE | 2020-12-29 19:19 | NUR ---
PATIENT REPORT RECEIVED FROM DAYSHIFT PATIENT APPEAR ON CALM, DROWSY, LETHARGIC DO NOT FOLOOWS COMMANDS, RESPOND TO PAIN ROOM AIR 5 L VPACED NOTED IN THE MONITOR 60 WILL TO CONTINUED TO MONITOR
[2020-12-30 05:54] LABS: Hematocrit 33.8 % (37.0-53.0); Hemoglobin 10.1 g/dL (13.5-17.5); Mean Corpuscular HGB 24.5 pg (26.0-34.0); Mean Corpuscular HGB Conc 29.9 g/dL (31.5-36.5); Mean Corpuscular Volume 82 fL (80-100); Mean Platelet Volume 9.4 fL (9.1-12.4); Platelet Count 293 K/mm3 (150-400); RDW Coefficient Variation 17.5 % (11.7-14.2); Red Blood Cell Count 4.13 M/mm3 (4.30-5.90); White Blood Cell Count 9.07 K/mm3 (4.00-11.30)
[2020-12-30 06:07] LABS: Albumin, Blood 2.1 g/dL (3.4-5.0); Albumin/Globulin Ratio 0.6 (0.8-1.8); Bilirubin, Total 0.6 mg/dL (0.1-1.0); Bun/Creatinine Ratio 14.6 (12.0-20.0); Calcium, Blood 8.4 mg/dL (8.5-10.1); Creatinine, Blood 1.23 mg/dL (0.60-1.20); Globulin, Blood 3.8 g/dL (2.2-4.0); Potassium, Blood 4.3 mmol/L (3.5-5.5); Total Protein, Blood 5.9 g/dL (6.4-8.2)
--- NOTE | 2020-12-30 08:44 | NUR ---
PT HANDOFF REPORT GIVEN TO MAIA RANGEL
--- NOTE | 2020-12-31 03:02 | NUR ---
2330 PT TRANSFERED TO UNIT AROUND 2330 FROM ICU. PT INTRODUCED TO ROOM AND STAFF. A/O X3 WITH CONFUSION AT TIMES. PT DENIES PAIN, SOB. ROOM AIR. TELE PACED IN THE 70'S WITH PVC'S PER CONFLICT RESOLUTION PROFESSIONAL. USES URINAL INDEPENDENTLY. CALL LIGHT WITHIN REACH, BED ALARM ON, WILL CONTINUE TO MONITOR.
[2020-12-31 05:29] LABS: Hematocrit 33.4 % (37.0-53.0); Hemoglobin 10.1 g/dL (13.5-17.5); Mean Corpuscular HGB 24.5 pg (26.0-34.0); Mean Corpuscular HGB Conc 30.2 g/dL (31.5-36.5); Mean Corpuscular Volume 81 fL (80-100); Mean Platelet Volume 9.7 fL (9.1-12.4); Platelet Count 281 K/mm3 (150-400); RDW Coefficient Variation 17.2 % (11.7-14.2); RDW Standard Deviation 50.1 fL (35.1-46.3); Red Blood Cell Count 4.13 M/mm3 (4.30-5.90); White Blood Cell Count 9.55 K/mm3 (4.00-11.30)
[2020-12-31 06:21] LABS: Alanine Aminotransfer (ALT/SGP 16 U/L (12-78); Albumin, Blood 2.3 g/dL (3.4-5.0); Albumin/Globulin Ratio 0.6 (0.8-1.8); Alk Phos 114 U/L (50-136); Anion Gap 5 mmol/L (6-16); Aspartate Aminotrans (AST/SGOT 19 U/L (12-37); Bilirubin, Total 0.6 mg/dL (0.1-1.0); Blood Urea Nitrogen 16 mg/dL (8-24); Bun/Creatinine Ratio 15.1 (12.0-20.0); CO2, Blood 23 mmol/L (21-32); Calcium, Blood 8.5 mg/dL (8.5-10.1); Chloride, Blood 106 mmol/L (98-108); Creatinine, Blood 1.06 mg/dL (0.60-1.20); Globulin, Blood 3.7 g/dL (2.2-4.0); Glomerular Filtration Rate >60 (60-); Glucose, Blood 176 mg/dL (70-99); Sodium, Blood 134 mmol/L (136-145)
--- NOTE | 2020-12-31 06:39 | NUR ---
SPINNING FRAME CLEANER SUMMARY PT A/O X2-3 WITH CONFUSION. THIS AM HE TRIED USED THE PHONE AND DIALED A NUMBER ASKING FOR "COMMUNITY HELP". THIS RN CAME IN TO THE ROOM AND ASKED WHO PT WAS CALLING. PT STATED HE WAS TRYING TO CALL HIS DAUGHTER IN [place]. PLEASANTLY CONFUSED. PER LIDAR ANALYST, PT IS RUNNING PACED AT 79. DENIES PAIN. VITALS STABLE. CALL LIGHT WITHIN REACH, BED ALARM ON, WILL CONTINUE TO MONITOR.
[2020-12-31 12:12] LABS: Influenza A, PCR NEGATIVE (NEGATIVE); Influenza B, PCR NEGATIVE (NEGATIVE); Resp Syncytial Virus, PCR NEGATIVE (NEGATIVE); SARS-Cov-2 (COVID-19) PCR, MMC NEGATIVE (NEGATIVE)
[2020-12-31] MEDS ORDERED: CEPH500 PO (13:43)
--- NOTE | 2020-12-31 16:31 | NUR ---
PT AO BUT CONFUSE AND FORGETFUL AT TIMES,PT HAVE BRUISES ALL UPPER CHEST AND LEFT ARM AND FINGERS,PT HAVE REDNESS ON BLE LEGS,PT HAS NO ACUTE EVENTS. PT DISCHARGED TO [facility],CALL AND GIVE REPORT TO FAMILY PABL[facility]O AT BESIDE AND PT LEAVE MEDICAL WITH ALL BELONGINGS.
== END 2020-12-31 15:10 | DRG 242 ==
LOC: ER 09:30 → ICUW 12:12 → ICUE 12:12 → MEDS 12-30 23:30
PROVIDERS: Emergency Medicine; Family Medicine; Nurse Practitioner Acute Care; Student in an Organized Health Care Education/Training Program; ADMIT Internal Medicine
PROC: 5A1223Z Performance of Cardiac Pacing, Continuous (ICD-10-PCS; 2020-12-28)
PROC: 3E02340 Introduction of Influenza Vaccine into Muscle, Percutaneous Approach (ICD-10-PCS; 2020-12-28)
PROC: 0JH606Z Insertion of Pacemaker, Dual Chamber into Chest Subcutaneous Tissue and Fascia, Open Approach (ICD-10-PCS; principal; 2020-12-29)
PROC: 02H63JZ Insertion of Pacemaker Lead into Right Atrium, Percutaneous Approach (ICD-10-PCS; 2020-12-29)
PROC: 02HK3JZ Insertion of Pacemaker Lead into Right Ventricle, Percutaneous Approach (ICD-10-PCS; 2020-12-29)
DX: I48.0 Paroxysmal atrial fibrillation (principal); G92.8 Other toxic encephalopathy; N17.9 Acute kidney failure, unspecified; F03.91 Unspecified dementia, unspecified severity, with behavioral disturbance; R00.1 Bradycardia, unspecified; I25.10 Atherosclerotic heart disease of native coronary artery without angina pectoris; I10 Essential (primary) hypertension; E03.9 Hypothyroidism, unspecified; Z20.822 Contact with and (suspected) exposure to COVID-19; N40.0 Benign prostatic hyperplasia without lower urinary tract symptoms; Z23 Encounter for immunization; E78.5 Hyperlipidemia, unspecified; Z79.899 Other long term (current) drug therapy; Z98.890 Other specified postprocedural states; R79.89 Other specified abnormal findings of blood chemistry; D72.828 Other elevated white blood cell count; I27.20 Pulmonary hypertension, unspecified; E11.9 Type 2 diabetes mellitus without complications; Z95.5 Presence of coronary angioplasty implant and graft
CPT/HCPCS: 0241U; 33208; 33210; 36415; 70450; 71045; 76937; 80047; 80053; 81001; 82550; 82553; 82947; 83735; 83880; 84439; 84443; 84481; 84484; 85014; 85025; 85027; 85610; 87086; 92610; 93005; 93010; 93308; 93321; 96374; 97162; 97530; 99152; 99153; 99285-25; A9270; C1751; C1769; C1785; C1894; C1898; J0461; J0690; J1265; J1580; J1644; J2250; J2370; J2405; J2704; J3010; J7030; J7040; J7120

== ENCOUNTER → 2021-01-08 | Outpatient (CLI) | payer MEDICARE ==
[~2021-01-08] MED LIST changes: +CEPH500 PO; +Potassium Chlo20 ME1 PO
== END | disposition home or self-care (01) ==
LOC: LAB SHORT 15:29
DX: L02.91 Cutaneous abscess, unspecified (principal)
CPT/HCPCS: 87070; 87075; 87076; 87077; 87186; 87205

== ENCOUNTER → 2021-03-12 | Outpatient (CLI) | payer MEDICARE ==
[2021-03-12 12:37] LABS: Microalbumin, Urine Quant. 19.5 mg/L (0.000-20.000); Protein, Urine Quantitative 15.3 mg/dL (0.0-11.9)
== END | disposition home or self-care (01) ==
LOC: LAB SHORT 11:08
PROVIDERS: Internal Medicine Nephrology
DX: N18.30 Chronic kidney disease, stage 3 unspecified (principal); D63.1 Anemia in chronic kidney disease; N25.81 Secondary hyperparathyroidism of renal origin; E29.1 Testicular hypofunction; D51.8 Other vitamin B12 deficiency anemias; D52.8 Other folate deficiency anemias; D50.9 Iron deficiency anemia, unspecified; R76.9 Abnormal immunological finding in serum, unspecified; R94.5 Abnormal results of liver function studies; R94.6 Abnormal results of thyroid function studies
CPT/HCPCS: 81050; 82043; 82570; 84156

== ENCOUNTER 2021-08-09 08:31 | Day surgery (SDC) | payer MEDICARE ==
[~2021-08-09] VITALS: Ht 172.7 cm; Wt 78.1 kg
--- NOTE | 2021-08-09 09:30 | NUR ---
08/09/21 0930 Elvin Cordon 0920, LORAINE 0920, L EYE BY [facility].ANITA.
== END 2021-08-09 11:10 | disposition home or self-care (01) ==
LOC: ORSCSDS 08:31
PROVIDERS: Ophthalmology
PROC: 08RK3JZ Replacement of Left Lens with Synthetic Substitute, Percutaneous Approach (ICD-10-PCS; principal; 2021-08-09 10:00)
DX: H25.12 Age-related nuclear cataract, left eye (principal); H21.81 Floppy iris syndrome; G47.33 Obstructive sleep apnea (adult) (pediatric); I10 Essential (primary) hypertension; I48.91 Unspecified atrial fibrillation; Z87.891 Personal history of nicotine dependence; E78.00 Pure hypercholesterolemia, unspecified; Z95.0 Presence of cardiac pacemaker; Z79.899 Other long term (current) drug therapy
CPT/HCPCS: 82947; J2001; J2250; J3010; J3301; J7040; V2632

== ENCOUNTER 2022-04-13 02:00 | Day surgery (SDC) | payer MEDICARE ==
[~2022-04-13 02:00] MED LIST changes: -Potassium Chlo20 ME1 PO
[2022-04-13 13:37] LABS: Hematocrit 31.5 % (37.0-53.0); Hemoglobin 8.9 g/dL (13.5-17.5)
[2022-04-13 14:15] LABS: Ferritin, Serum 22 ng/mL (26-388); Iron Serum 23 ug/dL (65-175); Percent Saturation 10.6 % (20.0-50.0); Total Iron Binding Capacity 218 ug/dL (250-450)
[2022-04-13 14:34] LABS: Albumin, Blood 2.7 g/dL (3.4-5.0); Anion Gap 7 mmol/L (6-16); Blood Urea Nitrogen 23 mg/dL (8-24); Bun/Creatinine Ratio 17.8 (12.0-20.0); CO2, Blood 21 mmol/L (21-32); Calcium, Blood 8.5 mg/dL (8.5-10.1); Chloride, Blood 108 mmol/L (98-108); Creatinine, Blood 1.29 mg/dL (0.60-1.20); Glomerular Filtration Rate 55 (60-); Glucose, Blood 114 mg/dL (70-99); Phosphorus, Blood 3.9 mg/dL (2.5-4.9); Potassium, Blood 4.7 mmol/L (3.5-5.5); Sodium, Blood 136 mmol/L (136-145)
== END 2022-04-13 15:57 | disposition home or self-care (01) ==
LOC: ATC 02:00
PROVIDERS: Internal Medicine Nephrology
DX: D63.1 Anemia in chronic kidney disease (principal); I12.9 Hypertensive chronic kidney disease with stage 1 through stage 4 chronic kidney disease, or unspecified chronic kidney disease; N18.31 Chronic kidney disease, stage 3a; N25.81 Secondary hyperparathyroidism of renal origin; D50.9 Iron deficiency anemia, unspecified; E86.9 Volume depletion, unspecified; N28.1 Cyst of kidney, acquired; E55.9 Vitamin D deficiency, unspecified
CPT/HCPCS: 80069; 82607; 82728; 82746; 83540; 83550; 84443; 85014; 85018; 86850; 86900; 86901; 86923; J1940; J7040; P9016

== ENCOUNTER 2022-06-17 17:57 | Observation (INO) | payer MEDICARE ==
[~2022-06-17] VITALS: Ht 172.7 cm; Wt 80.9 kg
[2022-06-17 18:53] LABS: BASOPHILS ABSOLUTE AUTO 0.03 K/mm3 (0.00-0.23); BASOPHILS PERCENT AUTO 0 % (0-2); EOSINOPHILS ABSOLUTE AUTO 0.05 K/mm3 (0.00-0.68); EOSINOPHILS PERCENT AUTO 0 % (0-6); Hematocrit 36.4 % (37.0-53.0); Hemoglobin 10.3 g/dL (13.5-17.5); IMMATURE GRAN ABSOLUTE AUTO 0.15 K/mm3 (0.00-0.10); IMMATURE GRAN PERCENT AUTO 1 % (0-1); LYMPHOCYTES ABSOLUTE AUTO 0.63 K/mm3 (0.84-5.20); LYMPHOCYTES PERCENT AUTO 5 % (21-46); MONOCYTES ABSOLUTE AUTO 0.68 K/mm3 (0.16-1.47); MONOCYTES PERCENT AUTO 5 % (4-13); Mean Corpuscular HGB 20.2 pg (26.0-34.0); Mean Corpuscular HGB Conc 28.3 g/dL (31.5-36.5); Mean Corpuscular Volume 71 fL (80-100); Mean Platelet Volume 8.7 fL (9.1-12.4); NEUTROPHILS PERCENT AUTO 88 % (41-73); NRBC ABSOLUTE 0.02 K/mm3 (0.00-0.02); NRBC Auto 0.2 /100 WBC (0.0-0.2); Platelet Count 342 K/mm3 (150-400); RDW Coefficient Variation 20.3 % (11.7-14.2); RDW Standard Deviation 50.9 fL (35.1-46.3); White Blood Cell Count 13.04 K/mm3 (4.00-11.30)
[2022-06-17 19:13] LABS: Albumin, Blood 2.7 g/dL (3.4-5.0); Albumin/Globulin Ratio 0.9 (0.8-1.8); Bilirubin, Total 0.2 mg/dL (0.1-1.0); Bun/Creatinine Ratio 35.3 (12.0-20.0); Calcium, Blood 8.4 mg/dL (8.5-10.1); Creatinine, Blood 1.39 mg/dL (0.60-1.20); Potassium, Blood 4.4 mmol/L (3.5-5.5); Total Protein, Blood 5.7 g/dL (6.4-8.2)
[2022-06-17 19:42] LABS: Source, Urine Clean Catch
[2022-06-17 19:46] LABS: Appearance, Urine Clear (Clear); Bilirubin, Urine Neg (Neg); Blood, Urine Neg (Neg); Color, Urine Yellow (P-Yellow); Glucose Qualitative, Urine Neg (Neg); Ketones, Urine Neg (Neg); Leukocyte Esterase, Urine Neg (Neg); Nitrite, Urine Neg (Neg); Protein, Urine Neg (Neg); Urobilinogen, Urine NORM (Normal)
[2022-06-17 19:58] LABS: Base Excess Venous -9.4 mmol/L; Bicarbonate Venous 17.8 mmol/L (24.0-30.0); PCO2 Venous 28.5 mmHg (38-42); pH Blood Venous 7.36 (7.34-7.37)
[2022-06-17] MEDS ORDERED: Restoril7.5 MG PO (20:05)
[2022-06-17] MEDS ORDERED: ELIQUIS2.5 M1 PO (20:07)
[2022-06-17] MEDS ORDERED: SODBIC650 PO (20:39)
[2022-06-18 01:52] VITALS: BP 133/63
[2022-06-18 05:11] LABS: BASOPHILS ABSOLUTE AUTO 0.06 K/mm3 (0.00-0.23); BASOPHILS PERCENT AUTO 1 % (0-2); EOSINOPHILS ABSOLUTE AUTO 0.18 K/mm3 (0.00-0.68); EOSINOPHILS PERCENT AUTO 1 % (0-6); Hemoglobin 9.8 g/dL (13.5-17.5); IMMATURE GRAN ABSOLUTE AUTO 0.14 K/mm3 (0.00-0.10); IMMATURE GRAN PERCENT AUTO 1 % (0-1); LYMPHOCYTES ABSOLUTE AUTO 1.12 K/mm3 (0.84-5.20); LYMPHOCYTES PERCENT AUTO 9 % (21-46); MONOCYTES ABSOLUTE AUTO 1.07 K/mm3 (0.16-1.47); MONOCYTES PERCENT AUTO 8 % (4-13); Mean Corpuscular HGB 20.5 pg (26.0-34.0); Mean Corpuscular HGB Conc 28.8 g/dL (31.5-36.5); Mean Corpuscular Volume 71 fL (80-100); Mean Platelet Volume 8.4 fL (9.1-12.4); NEUTROPHILS ABSOLUTE AUTO 10.42 K/mm3 (1.96-9.15); NEUTROPHILS PERCENT AUTO 80 % (41-73); NRBC ABSOLUTE 0.02 K/mm3 (0.00-0.02); NRBC Auto 0.2 /100 WBC (0.0-0.2); Platelet Count 315 K/mm3 (150-400); RDW Coefficient Variation 20.5 % (11.7-14.2); Red Blood Cell Count 4.77 M/mm3 (4.30-5.90); White Blood Cell Count 12.99 K/mm3 (4.00-11.30)
[2022-06-18 05:23] VITALS: BP 122/53
[2022-06-18 05:39] LABS: Albumin, Blood 2.3 g/dL (3.4-5.0); Anion Gap 2 mmol/L (6-16); Blood Urea Nitrogen 48 mg/dL (8-24); Bun/Creatinine Ratio 36.1 (12.0-20.0); CO2, Blood 21 mmol/L (21-32); Calcium, Blood 8.3 mg/dL (8.5-10.1); Chloride, Blood 112 mmol/L (98-108); Creatinine, Blood 1.33 mg/dL (0.60-1.20); Glomerular Filtration Rate 53 (60-); Glucose, Blood 154 mg/dL (70-99); Phosphorus, Blood 3.7 mg/dL (2.5-4.9); Potassium, Blood 4.1 mmol/L (3.5-5.5); Sodium, Blood 135 mmol/L (136-145)
--- NOTE | 2022-06-18 06:08 | NUR ---
SHIFT SUMMARY PATIENT ARRIVED TO ROOM 339 VIA STRETCHER AT 0121. PATIENT IS ALERT AND ORIENTED X4. SLIDE TRANSFER CONDUCTED DUE TO PATIENT'S STATE OF INCREASED WEAKNESS. PATIENT LIVES AT HOME WITH HIS , WHO IS BLIND, AND DOES NOT HAVE ANY OUTSIDE HELP. PATIENT UNSURE OF HIS MEDICATIONS HIS HANDLES THEM FOR HIM. VITAL SIGNS STABLE. 2+ PITTING EDEMA NOTED FROM PATIENT'S FEET UP TO HIS THIGHS. NO ACUTE ISSUES NOTED OVERNIGHT. CALL LIGHT WITHIN REACH.
[2022-06-18 07:46] VITALS: BP 128/58
[2022-06-18 15:11] VITALS: BP 113/55
--- NOTE | 2022-06-18 17:59 | NUR ---
NO ACUTE CHANGES, KIDNEY US DONE, TO STAY ANOTHER NIGHT, WORKED WITH PT, CONCERNS FOR HOME HEALTH RELAYED TO DR ANDERS, VOIDING 100-200 AT A TIME VIA BSU, SATS 100% ON RA, NO SOB, BED ALARM ON, CALL LIGHT WITH IN REACH WILL RELAY TO PM RN
[2022-06-18 20:44] VITALS: BP 125/54
[2022-06-19 03:23] VITALS: BP 125/57
[2022-06-19] MEDS ORDERED: SYNTHROID25 M12 PO (04:47)
[2022-06-19] MEDS ORDERED: AMLODIPINE BESY10 MG PO (04:48)
[2022-06-19] MEDS ORDERED: NYSTATIN15 GM TOP (04:52)
[2022-06-19 05:06] LABS: BASOPHILS ABSOLUTE AUTO 0.05 K/mm3 (0.00-0.23); BASOPHILS PERCENT AUTO 0 % (0-2); EOSINOPHILS ABSOLUTE AUTO 0.18 K/mm3 (0.00-0.68); EOSINOPHILS PERCENT AUTO 1 % (0-6); Hematocrit 35.6 % (37.0-53.0); Hemoglobin 10.1 g/dL (13.5-17.5); IMMATURE GRAN ABSOLUTE AUTO 0.08 K/mm3 (0.00-0.10); IMMATURE GRAN PERCENT AUTO 1 % (0-1); LYMPHOCYTES ABSOLUTE AUTO 1.06 K/mm3 (0.84-5.20); LYMPHOCYTES PERCENT AUTO 8 % (21-46); MONOCYTES ABSOLUTE AUTO 1.05 K/mm3 (0.16-1.47); MONOCYTES PERCENT AUTO 8 % (4-13); Mean Corpuscular HGB 20.2 pg (26.0-34.0); Mean Corpuscular HGB Conc 28.4 g/dL (31.5-36.5); Mean Corpuscular Volume 71 fL (80-100); Mean Platelet Volume 8.4 fL (9.1-12.4); NEUTROPHILS ABSOLUTE AUTO 10.77 K/mm3 (1.96-9.15); NEUTROPHILS PERCENT AUTO 82 % (41-73); NRBC ABSOLUTE 0.02 K/mm3 (0.00-0.02); NRBC Auto 0.2 /100 WBC (0.0-0.2); Platelet Count 301 K/mm3 (150-400); RDW Coefficient Variation 20.3 % (11.7-14.2); RDW Standard Deviation 50.9 fL (35.1-46.3); Red Blood Cell Count 5.01 M/mm3 (4.30-5.90); White Blood Cell Count 13.19 K/mm3 (4.00-11.30)
[2022-06-19 05:31] LABS: Albumin, Blood 2.2 g/dL (3.4-5.0); Anion Gap 2 mmol/L (6-16); Blood Urea Nitrogen 47 mg/dL (8-24); Bun/Creatinine Ratio 41.2 (12.0-20.0); CO2, Blood 22 mmol/L (21-32); Calcium, Blood 8.4 mg/dL (8.5-10.1); Chloride, Blood 111 mmol/L (98-108); Creatinine, Blood 1.14 mg/dL (0.60-1.20); Glomerular Filtration Rate 64 (60-); Glucose, Blood 113 mg/dL (70-99); Magnesium, Blood 2.2 mg/dL (1.6-2.4); Phosphorus, Blood 3.5 mg/dL (2.5-4.9); Potassium, Blood 3.9 mmol/L (3.5-5.5); Sodium, Blood 135 mmol/L (136-145)
--- NOTE | 2022-06-19 05:47 | NUR ---
Summary: Assumed care at 2345. No acute events while providing care. VSS.
[2022-06-19 07:48] VITALS: BP 126/53
[2022-06-19] MEDS ORDERED: ELIQUIS5 M2 PO (11:41)
[2022-06-19] MEDS ORDERED: SODBIC650 PO (11:42)
== END 2022-06-19 16:37 | disposition home or self-care (01) ==
LOC: ER 17:57 → MEDS 17:58 → ERHOLD 17:58 → MEDS 06-18 01:49
PROVIDERS: Internal Medicine Nephrology; Student in an Organized Health Care Education/Training Program; ADMIT Student in an Organized Health Care Education/Training Program
DX: N17.9 Acute kidney failure, unspecified (principal); I12.9 Hypertensive chronic kidney disease with stage 1 through stage 4 chronic kidney disease, or unspecified chronic kidney disease; E11.22 Type 2 diabetes mellitus with diabetic chronic kidney disease; N18.30 Chronic kidney disease, stage 3 unspecified; E87.20 Acidosis, unspecified; I48.19 Other persistent atrial fibrillation; R60.0 Localized edema; I25.10 Atherosclerotic heart disease of native coronary artery without angina pectoris; E87.1 Hypo-osmolality and hyponatremia; D64.9 Anemia, unspecified; E88.09 Other disorders of plasma-protein metabolism, not elsewhere classified; Z88.8 Allergy status to other drugs, medicaments and biological substances; Z79.01 Long term (current) use of anticoagulants
CPT/HCPCS: 36415; 51798; 76770; 80053; 80069; 81003; 82803; 82947; 83735; 85025; 93005; 93010; 96374; 97162; 97530; 99285-25; A9270; G0378

== ENCOUNTER → 2022-07-09 | Outpatient (CLI) | payer MEDICARE ==
[~2022-07-09] MED LIST changes: +ELIQUIS2.5 M1 PO; +ELIQUIS5 M2 PO; +NYSTATIN15 GM TOP; +Restoril7.5 MG PO; +SODBIC650 PO; +SYNTHROID25 M12 PO
[2022-07-09 19:08] LABS: Alanine Aminotransfer (ALT/SGP 24 U/L (12-78); Albumin/Globulin Ratio 0.6 (0.8-1.8); Alk Phos 111 U/L (50-136); Anion Gap 3 mmol/L (6-16); Aspartate Aminotrans (AST/SGOT 18 U/L (12-37); Bilirubin, Direct 0.1 mg/dL (0.0-0.3); Bilirubin, Indirect 0.2 mg/dL (0.1-0.7); Bilirubin, Total 0.3 mg/dL (0.1-1.0); Blood Urea Nitrogen 30 mg/dL (8-24); Bun/Creatinine Ratio 28.3 (12.0-20.0); CO2, Blood 24 mmol/L (21-32); Calcium, Blood 8.2 mg/dL (8.5-10.1); Chloride, Blood 107 mmol/L (98-108); Cholesterol 79 mg/dL (50-200); Creatinine, Blood 1.06 mg/dL (0.60-1.20); Globulin, Blood 3.1 g/dL (2.2-4.0); Glomerular Filtration Rate 70 (60-); Glucose, Blood 134 mg/dL (70-99); HDL Cholesterol 39 mg/dL (>39); LDL/HDL RATIO 0.7; Low Density Lipoprotein Chol 27 mg/dL (0-110); Phosphorus, Blood 2.9 mg/dL (2.5-4.9); Potassium, Blood 4.2 mmol/L (3.5-5.5); Sodium, Blood 134 mmol/L (136-145); Total Protein, Blood 5.1 g/dL (6.4-8.2); Triglycerides 63 mg/dL (30-160); Very Low Density Lipoprot Chol 12 mg/dL (6-32)
== END | disposition home or self-care (01) ==
LOC: LAB 16:55 → LAB SHORT 16:55
PROVIDERS: Internal Medicine Nephrology
DX: N18.30 Chronic kidney disease, stage 3 unspecified (principal); D63.1 Anemia in chronic kidney disease; N25.81 Secondary hyperparathyroidism of renal origin; E55.9 Vitamin D deficiency, unspecified; E78.00 Pure hypercholesterolemia, unspecified; R76.9 Abnormal immunological finding in serum, unspecified; R94.5 Abnormal results of liver function studies; R94.6 Abnormal results of thyroid function studies
CPT/HCPCS: 80053; 80061; 82248; 84100; 85018